=== PATIENT | male | born 1950 | race Hispanic/Latino ===

== ENCOUNTER 2017-11-29 22:11 | Inpatient (IN) | payer MEDICARE ==
[~2017-11-29] VITALS: Ht 165.1 cm; Wt 95.1 kg
[~2017-11-29 22:11] MED LIST: AMLO10TA6 PO; ASPI-555 PO; BRIM15OS OD; CILO100T PO; CLOP75TA32 PO; CYCL30DR OU; DORZ10DR10 OD; FAMO20TA8 PO; FENO145T37 PO; FERR325T22 PO; FISH1CAP27 PO; FOLI1TAB61 PO; INSLAN SQ; KETO1DRO OD; LEVO50TA11 PO; LOSA50TA25 PO; METO-409 PO; ROSU10TA27 PO; SILV400C TP; XALA2.5OS OD
[2017-11-29 22:44] LABS: BASOPHILS % (AUTO) 1.2 % (0.0-5.0); EOSINOPHILS % (AUTO) 3.2 % (0.0-8.0); HEMATOCRIT 25.8 % (42-54); LYMPHOCYTES % (AUTO) 14.8 % (21.0-51.0); MEAN CORPUSCULAR HEMOGLOBIN 32.1 pg (27.0-33.0); MEAN CORPUSCULAR HGB CONC 34.7 g/dL (32.0-36.0); MEAN CORPUSCULAR VOLUME 92.5 fL (79-99); MONOCYTES % (AUTO) 6.2 % (3.0-13.0); NEUTROPHILS % (AUTO) 74.6 % (40.0-77.0); PLATELET COUNT (AUTO) 195 K/uL (130-400); RED BLOOD CELL COUNT(AUTO) 2.79 MIL/uL (4.50-6.20); RED CELL DISTRIBUTION WIDTH 14.4 % (11.0-15.5); WHITE BLOOD COUNT (AUTO) 8.1 K/uL (4.8-10.8)
[2017-11-29 22:49] LABS: APPEARANCE,URINE Clear (CLEAR); BILIRUBIN,URINE Negative (NEGATIVE); COLOR,URINE Yellow (YELLOW); GLUCOSE, URINE (UA) Negative (NEGATIVE); KETONES,URINE Negative (NEGATIVE); LEUKOCYTE ESTERASE ,URINE Negative (NEGATIVE); NITRATE,URINE Negative (NEGATIVE); OCCULT BLOOD,URINE Negative (NEGATIVE); PH,URINE 5.5 (5.0-8.0); PROTEIN,URINE Trace (NEGATIVE); UROBILINOGEN,URINE 0.2 mg/dL (0.2-1.0)
[2017-11-29 22:58] LABS: AMPHET/METH SCREEN,URINE NEGATIVE (NEGATIVE); BARBITURATE SCREEN, URINE NEGATIVE (NEGATIVE); BENZODIAZEPINES SCREEN,URINE NEGATIVE (NEGATIVE); CANNABINOID SCREEN,URINE NEGATIVE (NEGATIVE); COCAINE SCREEN,URINE NEGATIVE (NEGATIVE); OPIATE SCREEN,URINE NEGATIVE (NEGATIVE); PHENCYCLIDINE SCREEN,URINE NEGATIVE (NEGATIVE)
[2017-11-29 22:58] LABS: CREATININE 2.3 mg/dL (0.5-1.5); POTASSIUM 5.6 mmol/L (3.5-5.1)
[2017-11-29 23:03] LABS: ALBUMIN 3.2 g/dL (3.5-5.0); BILIRUBIN,TOTAL 0.2 mg/dL (0.2-1.0); TOTAL PROTEIN, SERUM 6.6 g/dL (6.0-8.3)
[2017-11-29] MEDS ORDERED: FUROSEMIDE 10 MG/ML 4ML VIAL ONE (23:27)
[2017-11-29] MEDS ORDERED: NITROGLYCERIN 1GM/1 INCH PACKET TD ONE (23:28)
[2017-11-29] MEDS ORDERED: IPRATROPIUM/ALBUTEROL SULFATE 3 ML SOLUTION IH ONE (23:35)
[2017-11-30] MEDS ORDERED: ASPIRIN 325 MG TABLET ONE (01:03)
[2017-11-30] MEDS ORDERED: ENOXAPARIN SODIUM 100 MG/1 ML SQ ONE (02:01)
[2017-11-30] MEDS ORDERED: METOPROLOL TARTRATE 25 MG TAB ONE (02:01)
[2017-11-30 03:17] LABS: INR 0.98 (0.85-1.15); PARTIAL THROMBOPLASTIN TIME 27.1 SEC (26.3-35.5); PROTHROMBIN TIME 10.3 SEC (9.6-11.6)
[2017-11-30 08:00] VITALS: BP 148/62
[2017-11-30] MEDS ORDERED: SODIUM CHLORIDE 0.9% 10 ML VIAL IVP PRN (08:00)
[2017-11-30] MEDS ORDERED: FUROSEMIDE 10 MG/ML 4ML VIAL IVP SCH (08:00)
[2017-11-30] MEDS ORDERED: NITROGLYCERIN 50 MG/D5% WATER 250 BOT IV PRN (08:15)
[2017-11-30] MEDS ORDERED: BUPR75TA8 PO (08:28)
[2017-11-30] MEDS ORDERED: CHOL100018 PO (08:28)
[2017-11-30] MEDS ORDERED: LISI-617 PO (08:28)
[2017-11-30] MEDS ORDERED: BRIM5DRO OP (08:28)
[2017-11-30] MEDS ORDERED: CALC667C10 PO (08:28)
[2017-11-30] MEDS ORDERED: FURO40TA5 PO (08:28)
[2017-11-30] MEDS ORDERED: ATOR40TA69 PO (08:28)
[2017-11-30] MEDS ORDERED: LEVO75TA10 PO (08:28)
[2017-11-30] MEDS ORDERED: FOLI1TAB85 PO (08:28)
[2017-11-30] MEDS ORDERED: SITA100T12 PO (08:28)
[2017-11-30] MEDS ORDERED: PRAS10TA9 PO (08:28)
[2017-11-30] MEDS ORDERED: TAMS0.4C32 PO (08:28)
[2017-11-30 08:31] LABS: HEMATOCRIT 24.5 % (42-54); MEAN CORPUSCULAR HEMOGLOBIN 30.7 pg (27.0-33.0); MEAN CORPUSCULAR HGB CONC 33.5 g/dL (32.0-36.0); MEAN CORPUSCULAR VOLUME 91.8 fL (79-99); PLATELET COUNT (AUTO) 156 K/uL (130-400); RED BLOOD CELL COUNT(AUTO) 2.67 MIL/uL (4.50-6.20); RED CELL DISTRIBUTION WIDTH 14.4 % (11.0-15.5); WHITE BLOOD COUNT (AUTO) 7.5 K/uL (4.8-10.8)
[2017-11-30] MEDS: METOPROLOL TARTRATE 25 MG TAB PO SCH ×3 (08:31→21:13)
[2017-11-30] MEDS: ASPIRIN 325 MG TABLET PO SCH (08:31)
[2017-11-30] MEDS: ENOXAPARIN SODIUM 100 MG/1 ML SQ SCH (08:32)
[2017-11-30 09:01] LABS: ALBUMIN 3.1 g/dL (3.5-5.0); BILIRUBIN,TOTAL 0.3 mg/dL (0.2-1.0); CREATINE KINASE MB 91.2 ng/mL (0.5-3.6); CREATININE 2.2 mg/dL (0.5-1.5); POTASSIUM 4.8 mmol/L (3.5-5.1); TOTAL PROTEIN, SERUM 6.3 g/dL (6.0-8.3)
[2017-11-30 09:23] LABS: TROPONIN I 43.4 ng/mL (0.00-0.06)
[2017-11-30] MEDS: IPRATROPIUM/ALBUTEROL SULFATE 3 ML SOLUTION IH SCH ×4 (10:02→21:14)
[2017-11-30] MEDS: INSULIN HUMULIN R 100 UNIT/ML 3ML SQ SCH ×3 (11:30→21:21)
[2017-11-30 11:31] VITALS: BP 139/60
[2017-11-30 14:09] LABS: CREATINE KINASE MB 73.5 ng/mL (0.5-3.6)
[2017-11-30 14:11] LABS: TROPONIN I 33.02 ng/mL (0.00-0.06)
[2017-11-30 16:19] VITALS: BP 130/62
[2017-11-30 19:20] VITALS: BP 165/74
[2017-11-30] MEDS: ATORVASTATIN CALCIUM 40 MG TABLET PO SCH (21:13)
[2017-11-30] MEDS: TAMSULOSIN HCL 0.4 MG CAP.ER.24H PO SCH (21:13)
[2017-11-30 23:31] VITALS: BP 160/75
[2017-12-01] VITALS (7 sets, daily range): BP systolic 130–189; BP diastolic 57–79
[2017-12-01] MEDS: IPRATROPIUM/ALBUTEROL SULFATE 3 ML SOLUTION IH SCH ×4 (02:19→18:10)
[2017-12-01] MEDS: METOPROLOL TARTRATE 25 MG TAB PO SCH ×4 (02:59→21:21)
[2017-12-01] MEDS: LEVOTHYROXINE 75 MCG TABLET PO SCH (06:52)
[2017-12-01] MEDS: INSULIN HUMULIN R 100 UNIT/ML 3ML SQ SCH ×4 (06:53→21:22)
[2017-12-01 10:46] LABS: HEMATOCRIT 26.4 % (42-54); MEAN CORPUSCULAR HEMOGLOBIN 31.5 pg (27.0-33.0); MEAN CORPUSCULAR HGB CONC 33.9 g/dL (32.0-36.0); PLATELET COUNT (AUTO) 218 K/uL (130-400); RED BLOOD CELL COUNT(AUTO) 2.84 MIL/uL (4.50-6.20); RED CELL DISTRIBUTION WIDTH 14.3 % (11.0-15.5); WHITE BLOOD COUNT (AUTO) 8.5 K/uL (4.8-10.8)
[2017-12-01] MEDS: LINAGLIPTIN 5 MG TABLET PO SCH (10:50)
[2017-12-01] MEDS: FUROSEMIDE 40 MG TABLET PO SCH (10:50)
[2017-12-01] MEDS: PRASUGREL HCL 10 MG TABLET PO SCH (10:50)
[2017-12-01] MEDS: ASPIRIN 325 MG TABLET PO SCH (10:50)
[2017-12-01] MEDS: ENOXAPARIN SODIUM 100 MG/1 ML SQ SCH (10:51)
[2017-12-01] MEDS: INSULIN GLARGINE 100 UNITS/ML 10 ML VIAL SQ SCH (10:59)
[2017-12-01 11:18] LABS: CREATINE KINASE MB 16.1 ng/mL (0.5-3.6); CREATININE 2.5 mg/dL (0.5-1.5); POTASSIUM 4.5 mmol/L (3.5-5.1)
[2017-12-01 11:25] LABS: TROPONIN I 12.33 ng/mL (0.00-0.06)
[2017-12-01] MEDS ORDERED: SODIUM CHLORIDE 0.9% 1000ML 1,000 ML IV SCH (17:00)
[2017-12-01] MEDS ORDERED: IPRATROPIUM/ALBUTEROL SULFATE 3 ML SOLUTION IH PRN (18:30)
[2017-12-01] MEDS: TAMSULOSIN HCL 0.4 MG CAP.ER.24H PO SCH (21:21)
[2017-12-01] MEDS: ATORVASTATIN CALCIUM 40 MG TABLET PO SCH (21:22)
[2017-12-01] MEDS: ACETYLCYSTEINE 20% 200MG/ML 4ML VIAL PO SCH (21:23)
[2017-12-02] MEDS: METOPROLOL TARTRATE 25 MG TAB PO SCH ×4 (03:00→20:36)
[2017-12-02 03:32] VITALS: BP 95/41
[2017-12-02 04:06] LABS: BASOPHILS % (AUTO) 1.4 % (0.0-5.0); EOSINOPHILS % (AUTO) 4.4 % (0.0-8.0); HEMATOCRIT 22.9 % (42-54); LYMPHOCYTES % (AUTO) 27.9 % (21.0-51.0); MEAN CORPUSCULAR HGB CONC 33.7 g/dL (32.0-36.0); MONOCYTES % (AUTO) 8.6 % (3.0-13.0); NEUTROPHILS % (AUTO) 57.7 % (40.0-77.0); NUCLEATED RED BLOOD CELLS 0.1 % (0.0-0.19); PLATELET COUNT (AUTO) 162 K/uL (130-400); RED BLOOD CELL COUNT(AUTO) 2.48 MIL/uL (4.50-6.20); RED CELL DISTRIBUTION WIDTH 14.1 % (11.0-15.5); WHITE BLOOD COUNT (AUTO) 5.6 K/uL (4.8-10.8)
[2017-12-02 04:22] LABS: % IRON SATURATION 26.4 % (30-44)
[2017-12-02 04:33] LABS: ALBUMIN 2.9 g/dL (3.5-5.0); BILIRUBIN,TOTAL 0.3 mg/dL (0.2-1.0); CREATININE 2.2 mg/dL (0.5-1.5); MAGNESIUM 2.2 mg/dL (1.80-2.40); PHOSPHORUS 4.2 mg/dL (2.5-4.9); POTASSIUM 4.3 mmol/L (3.5-5.1); TOTAL PROTEIN, SERUM 6.3 g/dL (6.0-8.3); URIC ACID 8.6 mg/dL (2.6-7.2)
[2017-12-02] MEDS: LEVOTHYROXINE 75 MCG TABLET PO SCH (05:42)
[2017-12-02] MEDS: INSULIN HUMULIN R 100 UNIT/ML 3ML SQ SCH ×4 (05:58→20:42)
[2017-12-02 07:28] VITALS: BP 147/65
[2017-12-02] MEDS: ASPIRIN 325 MG TABLET PO SCH (10:25)
[2017-12-02] MEDS: FOLIC ACID/VITAMIN B COMP W-C 1 MG CAPSULE PO SCH (10:25)
[2017-12-02] MEDS: PRASUGREL HCL 10 MG TABLET PO SCH (10:25)
[2017-12-02] MEDS: FUROSEMIDE 40 MG TABLET PO SCH (10:25)
[2017-12-02] MEDS: LINAGLIPTIN 5 MG TABLET PO SCH (10:25)
[2017-12-02] MEDS: ACETYLCYSTEINE 20% 200MG/ML 4ML VIAL PO SCH ×2 (10:26→21:00)
[2017-12-02] MEDS: ENOXAPARIN SODIUM 100 MG/1 ML SQ SCH (10:26)
[2017-12-02] MEDS: INSULIN GLARGINE 100 UNITS/ML 10 ML VIAL SQ SCH (10:28)
[2017-12-02 11:34] VITALS: BP 146/73
[2017-12-02] MEDS ORDERED: EPOETIN ALFA 10,000 UNIT/ML VIAL SQ SCH (12:45)
[2017-12-02 16:01] VITALS: BP 142/77
[2017-12-02 19:02] VITALS: BP 105/49
[2017-12-02] MEDS: ATORVASTATIN CALCIUM 40 MG TABLET PO SCH (20:36)
[2017-12-02] MEDS: TAMSULOSIN HCL 0.4 MG CAP.ER.24H PO SCH (20:36)
[2017-12-02 23:54] VITALS: BP 133/66
[2017-12-03] MEDS ORDERED: SODIUM CHLORIDE 0.9% 1000ML 1,000 ML IV PRN (01:45)
[2017-12-03] MEDS: METOPROLOL TARTRATE 25 MG TAB PO SCH ×3 (02:44→17:01)
[2017-12-03 03:49] VITALS: BP 143/62
[2017-12-03 04:07] LABS: BASOPHILS % (AUTO) 1.1 % (0.0-5.0); EOSINOPHILS % (AUTO) 3.4 % (0.0-8.0); HEMATOCRIT 22.8 % (42-54); LYMPHOCYTES % (AUTO) 26.5 % (21.0-51.0); MEAN CORPUSCULAR HEMOGLOBIN 31.8 pg (27.0-33.0); MEAN CORPUSCULAR HGB CONC 34.5 g/dL (32.0-36.0); MEAN CORPUSCULAR VOLUME 92.2 fL (79-99); MONOCYTES % (AUTO) 9.4 % (3.0-13.0); NEUTROPHILS % (AUTO) 59.6 % (40.0-77.0); NUCLEATED RED BLOOD CELLS 0.1 % (0.0-0.19); PLATELET COUNT (AUTO) 179 K/uL (130-400); RED BLOOD CELL COUNT(AUTO) 2.47 MIL/uL (4.50-6.20); RED CELL DISTRIBUTION WIDTH 14.4 % (11.0-15.5); WHITE BLOOD COUNT (AUTO) 6.2 K/uL (4.8-10.8)
[2017-12-03 04:15] LABS: APPEARANCE,URINE Clear (CLEAR); BILIRUBIN,URINE Negative (NEGATIVE); COLOR,URINE Yellow (YELLOW); GLUCOSE, URINE (UA) Negative (NEGATIVE); KETONES,URINE Negative (NEGATIVE); LEUKOCYTE ESTERASE ,URINE Negative (NEGATIVE); NITRATE,URINE Negative (NEGATIVE); OCCULT BLOOD,URINE Negative (NEGATIVE); PROTEIN,URINE Negative (NEGATIVE); UROBILINOGEN,URINE 0.2 mg/dL (0.2-1.0)
[2017-12-03] MEDS: LEVOTHYROXINE 75 MCG TABLET PO SCH (04:15)
[2017-12-03 04:16] LABS: BACTERIA,URINE None Seen /HPF (None Seen); RBC,URINE None Seen /HPF (0-1); SQUAMOUS EPITHELIAL CELL,UR Few /HPF (0-2); WBC,URINE None Seen /HPF (0-1)
[2017-12-03 04:23] LABS: CARBON DIOXIDE 28 mmol/L (21-32); CHLORIDE 105 mmol/L (101-111); CREATININE 2.4 mg/dL (0.5-1.5); GLUCOSE,RANDOM 165 mg/dL (70-105); POTASSIUM 4.3 mmol/L (3.5-5.1); SODIUM SERUM 140 mmol/L (136-145); UREA NITROGEN, BLOOD 66 mg/dL (7-18)
[2017-12-03 04:24] LABS: ALANINE AMINOTRANSFERASE 34 U/L (12-78); ALBUMIN 2.9 g/dL (3.5-5.0); ASPARTATE AMINOTRANSFERASE 34 U/L (10-37); BILIRUBIN,TOTAL 0.2 mg/dL (0.2-1.0); GLOMERULAR FILTR. RATE CALC 29 mL/min (>60); TOTAL PROTEIN, SERUM 6.1 g/dL (6.0-8.3)
[2017-12-03 04:28] LABS: % IRON SATURATION 27.6 % (30-44); FERRITIN 543 ng/mL (30-400); IRON, SERUM 49 mcg/dL (65-175); TOTAL IRON BINDING CAPACITY 177 mcg/dL (250-450)
[2017-12-03] MEDS: INSULIN HUMULIN R 100 UNIT/ML 3ML SQ SCH ×3 (05:55→17:01)
[2017-12-03 07:01] LABS: RETICULOCYTE % (AUTO) 3.54 % (0.42-2.23)
[2017-12-03 07:33] VITALS: BP 120/52
[2017-12-03] MEDS: ENOXAPARIN SODIUM 100 MG/1 ML SQ SCH (09:00)
[2017-12-03] MEDS ORDERED: REGADENOSON 0.4 MG/5 ML PF SYG IVP SCH (09:30)
[2017-12-03 12:25] VITALS: BP 92/48
[2017-12-03] MEDS: ASPIRIN 325 MG TABLET PO SCH (12:28)
[2017-12-03] MEDS: LINAGLIPTIN 5 MG TABLET PO SCH (12:28)
[2017-12-03] MEDS: FOLIC ACID/VITAMIN B COMP W-C 1 MG CAPSULE PO SCH (12:28)
[2017-12-03] MEDS: PRASUGREL HCL 10 MG TABLET PO SCH (12:28)
[2017-12-03] MEDS: INSULIN GLARGINE 100 UNITS/ML 10 ML VIAL SQ SCH (12:33)
[2017-12-03 16:27] VITALS: BP 122/65
[2017-12-03] MEDS: FUROSEMIDE 40 MG TABLET PO SCH (17:01)
[2017-12-03 18:30] VITALS: BP 118/46
== END 2017-12-03 19:19 | disposition home or self-care (01) | DRG 280 ==
LOC: EDH 22:11 → OBSVTOIN 11-30 01:08 → EDHIP 11-30 01:08 → 2BH 11-30 07:43
PROVIDERS: ADMIT Family Medicine; ATTEND Family Medicine
DX: I21.4 Non-ST elevation (NSTEMI) myocardial infarction (principal); I50.21 Acute systolic (congestive) heart failure; I13.0 Hypertensive heart and chronic kidney disease with heart failure and stage 1 through stage 4 chronic kidney disease, or unspecified chronic kidney disease; N17.9 Acute kidney failure, unspecified; I25.110 Atherosclerotic heart disease of native coronary artery with unstable angina pectoris; E78.5 Hyperlipidemia, unspecified; E11.21 Type 2 diabetes mellitus with diabetic nephropathy; E11.22 Type 2 diabetes mellitus with diabetic chronic kidney disease; E11.51 Type 2 diabetes mellitus with diabetic peripheral angiopathy without gangrene; D64.9 Anemia, unspecified; H40.9 Unspecified glaucoma; I25.5 Ischemic cardiomyopathy; J44.9 Chronic obstructive pulmonary disease, unspecified; N18.9 Chronic kidney disease, unspecified; H54.62 Unqualified visual loss, left eye, normal vision right eye; I25.2 Old myocardial infarction; Z87.891 Personal history of nicotine dependence; Z99.2 Dependence on renal dialysis; Z79.4 Long term (current) use of insulin
CPT/HCPCS: 36415; 71045; 78452; 80048; 80053; 80305; 81001; 81003; 82550; 82553; 82607; 82728; 82746; 82948; 83540; 83550; 83735; 83874; 83880; 84100; 84484; 84550; 85025; 85027; 85610; 85730; 93005; 93017; 93306; 94640; 94664; 96374; 97039; A9500; J0885; J1650; J1815; J1940; J2785; J7608

== ENCOUNTER → 2018-09-28 | Outpatient (CLI) | payer MEDICARE ==
[~2018-09-28] MED LIST changes: +AEC81 PO; -AMLO10TA6 PO; -ASPI-555 PO; +ATOR40TA69 PO; -BRIM15OS OD; +BRIM5DRO OP; +BUPR75TA8 PO; +CALC667C10 PO; +CHOL100018 PO; -CILO100T PO; -CLOP75TA32 PO; -CYCL30DR OU; -DORZ10DR10 OD; -FAMO20TA8 PO; -FENO145T37 PO; -FISH1CAP27 PO; -FOLI1TAB61 PO; +FOLI1TAB85 PO; +FURO40TA5 PO; -KETO1DRO OD; -LEVO50TA11 PO; +LEVO75TA10 PO; -LOSA50TA25 PO; -METO-409 PO; +METO25TA6 PO; +NITR0.4T50 SL; +PRAS10TA9 PO; -ROSU10TA27 PO; -SILV400C TP; +SITA100T12 PO; +TAMS0.4C32 PO
== END | disposition home or self-care (01) ==
LOC: OIH 11:57
PROVIDERS: ATTEND Family Medicine
DX: J90 Pleural effusion, not elsewhere classified (principal); J98.11 Atelectasis
CPT/HCPCS: 71046

== ENCOUNTER 2018-10-21 07:25 | Day surgery (SDC) | payer MEDICARE ==
--- NOTE | 2018-08-31 13:06 | NUR ---
NURSING REGARDING PT BLOOD THINNER PRASUGREL THAT WAS TAKEN THIS AM AND STATES IS BLEEDING EASILY, PER RHETT RAHMAN PT WILL NOTIFIED THAT CASE WILL BE POSTPONED FOR TOMORROW Addendum: 08/31/18 at 1309 by ALEXUS ASHER RN Amended: Links added.
[~2018-10-21] VITALS: Ht 165.1 cm; Wt 93.4 kg
[~2018-10-21 07:25] MED LIST changes: -BUPR75TA8 PO; -CALC667C10 PO; -XALA2.5OS OD
[2018-10-21 09:20] VITALS: BP 175/81
[2018-10-21] MEDS ORDERED: FURO40TA5 PO (09:56)
[2018-10-21] MEDS ORDERED: BRIM5DRO OP (09:59)
[2018-10-21] MEDS ORDERED: [UNRECOGNIZED DRUG - CODE] IJ (10:16)
[2018-10-21] MEDS ORDERED: FLUT1AER IH (10:16)
[2018-10-21] MEDS ORDERED: CALC667C10 PO (10:16)
[2018-10-21] MEDS ORDERED: PANT40TA25 PO (10:16)
[2018-10-21] MEDS ORDERED: CHOL100018 PO (10:29)
[2018-10-21] MEDS ORDERED: SODIUM CHLORIDE 0.9% 1000ML 1,000 ML IV ONE (11:13)
[2018-10-21 11:33] VITALS: BP 137/41
[2018-10-21 11:40] VITALS: BP 144/50
[2018-10-21 11:45] VITALS: BP 151/56
[2018-10-21] MEDS ORDERED: PROPOFOL 10 MG/ML 20ML VIAL IV ONE (11:48)
[2018-10-21 12:00] VITALS: BP 164/53
[2018-10-21 12:05] VITALS: BP 152/53
== END 2018-10-21 12:45 | disposition home or self-care (01) ==
LOC: ENDO 07:25 → DAH 07:25 → ENDO 12:45
PROVIDERS: ATTEND Internal Medicine Gastroenterology
DX: K59.00 Constipation, unspecified (principal); D50.9 Iron deficiency anemia, unspecified; J44.9 Chronic obstructive pulmonary disease, unspecified; I25.2 Old myocardial infarction; I11.0 Hypertensive heart disease with heart failure; I50.9 Heart failure, unspecified; E78.5 Hyperlipidemia, unspecified; H54.7 Unspecified visual loss; E11.9 Type 2 diabetes mellitus without complications; K21.9 Gastro-esophageal reflux disease without esophagitis; K29.70 Gastritis, unspecified, without bleeding; I25.10 Atherosclerotic heart disease of native coronary artery without angina pectoris; K31.84 Gastroparesis; Z86.73 Personal history of transient ischemic attack (TIA), and cerebral infarction without residual deficits; Z79.82 Long term (current) use of aspirin; Z79.899 Other long term (current) drug therapy; Z95.1 Presence of aortocoronary bypass graft
CPT/HCPCS: 45378; 82948; J2704; J7030

== ENCOUNTER 2018-10-22 05:33 | Day surgery (SDC) | payer MEDICARE ==
[~2018-10-22] VITALS: Ht 162.6 cm; Wt 94.8 kg
[~2018-10-22 05:33] MED LIST changes: -AEC81 PO; -BRIM5DRO OP; +CALC667C10 PO; +FLUT1AER IH; +PANT40TA25 PO; -PRAS10TA9 PO; +[UNRECOGNIZED DRUG - CODE] IJ
[2018-10-22] MEDS ORDERED: SODIUM CHLORIDE 0.9% 1000ML 1,000 ML IV ONE (05:45)
[2018-10-22 06:00] VITALS: BP 163/55
[2018-10-22] MEDS ORDERED: GLYCOPYRROLATE 0.2 MG/ML 5 ML VIAL ONE (06:37)
[2018-10-22] MEDS ORDERED: PROPOFOL 10 MG/ML 20ML VIAL IV ONE ×2 (06:37)
[2018-10-22] MEDS ORDERED: LIDOCAINE HCL-MPF 2% 5ML VIAL ONE (06:38)
[2018-10-22 07:01] VITALS: BP 114/40
[2018-10-22 07:06] VITALS: BP 127/49
[2018-10-22 07:11] VITALS: BP 138/53
[2018-10-22 07:16] VITALS: BP 131/56
[2018-10-22 07:21] VITALS: BP 135/58
--- NOTE | 2018-10-22 07:45 | NUR ---
GLUCOSE INFORMED Viky MONTILLA PERSONAL CARE HOME ADMINISTRATOR OF PTS GLUCOSE 79. PT ATE CRACKERS AND 2 APPLE JUICES. STATES PT CAN BE DISCHARGED HOME AND NEEDS TO EAT BREAKFAST AFTER DISCHARGE. BOTH PT AND PTS GRANDSON VERBALIZED UNDERSTANDING. PT DISCHARGED.
== END 2018-10-22 07:55 | disposition home or self-care (01) ==
LOC: ENDO 05:33 → DAH 05:33 → ENDO 07:55
PROVIDERS: ATTEND Internal Medicine
DX: K63.5 Polyp of colon (principal); K57.30 Diverticulosis of large intestine without perforation or abscess without bleeding; K21.9 Gastro-esophageal reflux disease without esophagitis; E11.9 Type 2 diabetes mellitus without complications; I25.10 Atherosclerotic heart disease of native coronary artery without angina pectoris; J44.9 Chronic obstructive pulmonary disease, unspecified; I11.0 Hypertensive heart disease with heart failure; I50.9 Heart failure, unspecified; H40.9 Unspecified glaucoma; Z79.4 Long term (current) use of insulin; Z79.899 Other long term (current) drug therapy; Z83.3 Family history of diabetes mellitus; Z82.49 Family history of ischemic heart disease and other diseases of the circulatory system
CPT/HCPCS: 45380; 45385; 82948 ×3; 88305; A4606; J2704 ×2; J3490 ×2; J7030

== ENCOUNTER → 2018-11-11 | Outpatient (CLI) | payer MEDICARE | END | disposition home or self-care (01) | LOC: OIH 10:54 | PROVIDERS: ATTEND Family Medicine | DX: I51.7 Cardiomegaly (principal); I70.0 Atherosclerosis of aorta; I50.9 Heart failure, unspecified; J40 Bronchitis, not specified as acute or chronic | CPT/HCPCS: 71046 ==

== ENCOUNTER 2019-02-22 14:12 | Emergency (ER) | payer MEDICARE ==
[2019-02-22] MEDS ORDERED: L.E.T. GEL 4%/0.5%/0.18% 3ML 3 ML/SYR SYG TP ONE (14:28)
[2019-02-22] MEDS ORDERED: TETANUS/DIPHTHERIA TOXOID [ADULT] 0.5 ML VIAL IM ONE (14:29)
[2019-02-22 14:45] LABS: BASOPHILS % (AUTO) 1.3 % (0.0-5.0); EOSINOPHILS % (AUTO) 4.7 % (0.0-8.0); HEMATOCRIT 32.9 % (42-54); LYMPHOCYTES % (AUTO) 19.5 % (21.0-51.0); MEAN CORPUSCULAR HEMOGLOBIN 26.7 pg (27.0-33.0); MEAN CORPUSCULAR HGB CONC 32.3 g/dL (32.0-36.0); MEAN CORPUSCULAR VOLUME 82.6 fL (79-99); MONOCYTES % (AUTO) 8.9 % (3.0-13.0); NEUTROPHILS % (AUTO) 65.6 % (40.0-77.0); PLATELET COUNT (AUTO) 175 K/uL (130-400); RED BLOOD CELL COUNT(AUTO) 3.98 MIL/uL (4.50-6.20); RED CELL DISTRIBUTION WIDTH 19.5 % (11.0-15.5); WHITE BLOOD COUNT (AUTO) 5.8 K/uL (4.8-10.8)
[2019-02-22 15:00] LABS: INR 1.01 (0.85-1.15); PARTIAL THROMBOPLASTIN TIME 29.4 SEC (26.3-35.5); PROTHROMBIN TIME 10.6 SEC (9.6-11.6)
== END 2019-02-22 17:17 | disposition home or self-care (01) ==
LOC: EDH 14:12
DX: S01.01XA Laceration without foreign body of scalp, initial encounter (principal); S60.811A Abrasion of right wrist, initial encounter; I25.10 Atherosclerotic heart disease of native coronary artery without angina pectoris; J44.9 Chronic obstructive pulmonary disease, unspecified; E11.9 Type 2 diabetes mellitus without complications; E78.5 Hyperlipidemia, unspecified; I10 Essential (primary) hypertension; Z87.891 Personal history of nicotine dependence; W20.8XXA Other cause of strike by thrown, projected or falling object, initial encounter; Y93.89 Activity, other specified; Y92.89 Other specified places as the place of occurrence of the external cause; Y99.8 Other external cause status
CPT/HCPCS: 12002; 36415; 70450; 82550; 84484; 85025; 85610; 85730; 90471; 90714; 93005

== ENCOUNTER → 2019-12-16 | Outpatient (CLI) | payer MEDICARE ==
[~2019-12-16] MED LIST changes: +ASPI-556 PO; -ATOR40TA69 PO; +BUPR75TA8 PO; -FLUT1AER IH; -FURO40TA5 PO; -INSLAN SQ; -PANT40TA25 PO; +PANT40TA55 PO; -SITA100T12 PO; +SITA50TA PO; -[UNRECOGNIZED DRUG - CODE] IJ
== END | disposition home or self-care (01) ==
LOC: RAH 09:47
PROVIDERS: ATTEND Family Medicine
DX: R60.9 Edema, unspecified (principal)
CPT/HCPCS: 93971

== ENCOUNTER 2021-03-19 18:37 | Inpatient (IN) | payer MEDICARE ==
[~2021-03-19] VITALS: Ht 165.1 cm; Wt 86.9 kg
[2021-03-19 20:27] LABS: BASOPHILS % (AUTO) 0.3 % (0.0-5.0); EOSINOPHILS % (AUTO) 3.2 % (0.0-8.0); HEMATOCRIT 39.1 % (42-54); LYMPHOCYTES % (AUTO) 3.6 % (21.0-51.0); MEAN CORPUSCULAR HEMOGLOBIN 27.9 pg (27.0-33.0); MEAN CORPUSCULAR VOLUME 84.6 fL (79-99); MONOCYTES % (AUTO) 8.8 % (3.0-13.0); NEUTROPHILS % (AUTO) 83.7 % (40.0-77.0); PLATELET COUNT (AUTO) 191 K/uL (130-400); RED BLOOD CELL COUNT(AUTO) 4.62 MIL/uL (4.50-6.20); RED CELL DISTRIBUTION WIDTH 16.9 % (11.0-15.5); WHITE BLOOD COUNT (AUTO) 11.3 K/uL (4.8-10.8)
[2021-03-19 20:48] LABS: INR 1.05 (0.85-1.15); PROTHROMBIN TIME 11.4 SEC (9.6-11.6)
[2021-03-19 20:49] LABS: PARTIAL THROMBOPLASTIN TIME 28.8 SEC (26.3-35.5)
[2021-03-19 21:06] LABS: ALBUMIN 3.7 g/dL (3.5-5.0); BILIRUBIN,TOTAL 0.6 mg/dL (0.2-1.0); CREATININE 3.9 mg/dL (0.5-1.5); TOTAL PROTEIN, SERUM 8.9 g/dL (6.0-8.3)
[2021-03-19 21:15] LABS: POTASSIUM 2.8 mmol/L (3.5-5.1)
[2021-03-19] MEDS ORDERED: POTASSIUM BICARB/CIT AC 25 MEQ TABLET.EFF PO ONE (21:30)
[2021-03-19 23:49] LABS: ABG BASE EXCESS 8.6 mmol/L (-2.0-3.0); ABG HCO3 33.1 mmol/L (21.0-28.0); ABG OXYGEN SATURATION 79.4 % (95.0-99.0); ABG PCO2 45 mmHg (35-48)
[2021-03-20] MEDS ORDERED: ACETAMINOPHEN 325 MG TAB PO PRN
[2021-03-20] MEDS ORDERED: HYDRALAZINE 20MG/ML VIAL IV PRN
[2021-03-20] MEDS ORDERED: ACETAMINOPHEN 650 MG SUPPOSITORY RC PRN
[2021-03-20] MEDS ORDERED: LACTATED RINGERS 1000ML 1,000 ML IV SCH
[2021-03-20] MEDS ORDERED: ONDANSETRON 4MG INJ IVP PRN
[2021-03-20] MEDS ORDERED: CLONIDINE HCL 0.1 MG TABLET PO PRN
[2021-03-20] MEDS ORDERED: LACTULOSE 20 GM/30 ML UDCUP PO PRN
[2021-03-20] MEDS ORDERED: SOLU-MEDROL 125MG VIAL IVP ONE
[2021-03-20 00:21] LABS: CREATINE KINASE, TOTAL 33 U/L (21-232); MYOGLOBIN 174 ng/mL (10-92)
[2021-03-20] MEDS ORDERED: KCL 20 MEQ ERTAB PO ONE ×2 (01:15)
[2021-03-20] MEDS ORDERED: SOLU-MEDROL 125MG VIAL ONE (01:15)
[2021-03-20] MEDS ORDERED: AZITHROMYCIN 500MG+NS 250ML 250 ML IV ONE (01:16)
[2021-03-20] MEDS: AZITHROMYCIN 500MG VIAL IVPB SCH (01:22)
[2021-03-20] MEDS: 0.9% NACL 250ML IVPB SCH (01:22)
[2021-03-20] MEDS: CEFTRIAXONE 1G VIAL IVP SCH (01:22)
[2021-03-20] MEDS: IPRATROPIUM/ALBUTEROL SULFATE 3 ML SOLUTION IH SCH ×6 (01:56→21:39)
[2021-03-20 06:43] LABS: BASOPHILS % (AUTO) 0.3 % (0.0-5.0); EOSINOPHILS % (AUTO) 3.7 % (0.0-8.0); HEMATOCRIT 41.6 % (42-54); LYMPHOCYTES % (AUTO) 5.1 % (21.0-51.0); MEAN CORPUSCULAR HGB CONC 31.7 g/dL (32.0-36.0); MEAN CORPUSCULAR VOLUME 88.3 fL (79-99); NEUTROPHILS % (AUTO) 81.4 % (40.0-77.0); PLATELET COUNT (AUTO) 172 K/uL (130-400); RED BLOOD CELL COUNT(AUTO) 4.71 MIL/uL (4.50-6.20); RED CELL DISTRIBUTION WIDTH 17.1 % (11.0-15.5); WHITE BLOOD COUNT (AUTO) 7.6 K/uL (4.8-10.8)
[2021-03-20 06:57] LABS: % IRON SATURATION 6.4 % (30-44)
[2021-03-20 07:06] LABS: CREATININE 4.3 mg/dL (0.5-1.5); POTASSIUM 3.3 mmol/L (3.5-5.1); THYROID STIMULATING HORMONE 0.65 uIU/mL (0.36-3.74)
[2021-03-20 07:21] LABS: B-TYPE NATRIURETIC PEPTIDE 971 pg/mL (0-100)
[2021-03-20 07:25] LABS: APPEARANCE,URINE Clear (CLEAR); BILIRUBIN,URINE Negative (NEGATIVE); COLOR,URINE Yellow (YELLOW); GLUCOSE, URINE (UA) 250 mg/dL (NEGATIVE); KETONES,URINE Negative (NEGATIVE); LEUKOCYTE ESTERASE ,URINE Negative (NEGATIVE); NITRATE,URINE Negative (NEGATIVE); OCCULT BLOOD,URINE Negative (NEGATIVE); PROTEIN,URINE POS 2+ mg/dL (NEGATIVE); UROBILINOGEN,URINE 0.2 mg/dL (0.2-1.0)
[2021-03-20] MEDS: INSULIN HUMULIN R 100 UNIT/ML 3ML SQ SCH ×4 (07:30→21:00)
[2021-03-20 07:31] LABS: AMORPHOUS SEDIMENT,UR Moderate /LPF (None Seen); BACTERIA,URINE Rare /HPF (None Seen); RBC,URINE 0-1 /HPF (0-1); SQUAMOUS EPITHELIAL CELL,UR Rare /HPF (0-2); WBC,URINE 0-1 /HPF (0-1)
[2021-03-20 07:32] LABS: AMPHET/METH SCREEN,URINE NEGATIVE (NEGATIVE); BARBITURATE SCREEN, URINE NEGATIVE (NEGATIVE); BENZODIAZEPINES SCREEN,URINE NEGATIVE (NEGATIVE); CANNABINOID SCREEN,URINE NEGATIVE (NEGATIVE); COCAINE SCREEN,URINE NEGATIVE (NEGATIVE); OPIATE SCREEN,URINE NEGATIVE (NEGATIVE); PHENCYCLIDINE SCREEN,URINE NEGATIVE (NEGATIVE)
[2021-03-20] MEDS ORDERED: PANTOPRAZOLE 40 MG TAB DR PO SCH (09:00)
[2021-03-20] MEDS ORDERED: FOLI1TAB85 PO (09:18)
[2021-03-20] MEDS ORDERED: NETA2.5D OP (09:18)
[2021-03-20] MEDS ORDERED: FURO40TA5 PO (09:18)
[2021-03-20] MEDS ORDERED: FERR-72 PO (09:18)
[2021-03-20] MEDS ORDERED: METO5TAB7 PO (09:18)
[2021-03-20] MEDS ORDERED: ATOR40TA69 PO (09:18)
[2021-03-20] MEDS ORDERED: BIMA2.5D4 OP (09:18)
[2021-03-20] MEDS ORDERED: CARV6.25 PO (09:18)
[2021-03-20] MEDS ORDERED: NITROGLYCERIN 0.4 MG SL TAB SL SCH (09:30)
[2021-03-20] MEDS: POLYETHYLENE GLYCOL 3350 17 GM POWD.PACK PO SCH (10:27)
[2021-03-20] MEDS: ENOXAPARIN SODIUM 30 MG/0.3 ML SQ SCH (10:27)
[2021-03-20] MEDS: PREDNISONE 20 MG TABLET PO SCH (10:27)
[2021-03-20] MEDS: ASPIRIN 81MG CHEW TAB PO SCH (10:27)
[2021-03-20] MEDS: FUROSEMIDE 40MG VIAL IVP SCH (17:00)
[2021-03-20] MEDS ORDERED: COMPOUND IV MISC 1 EACH IVSOLN MISC PRN (17:30)
[2021-03-20] MEDS: IRON SUCROSE COMPLEX 300 MG in 0.9%NACL 50ML 50 ML IV SCH (18:32)
[2021-03-20] MEDS ORDERED: FUROSEMIDE 40 MG TABLET PO SCH (21:00)
[2021-03-20] MEDS: LATANOPROST 2.5 ML DROPS OP SCH (21:00)
[2021-03-20 22:01] LABS: PROTEIN,URINE RANDOM 125.3 mg/dL (0-11.9)
[2021-03-20] MEDS: CARVEDILOL 6.25 MG TABLET PO SCH (22:21)
[2021-03-20] MEDS: TAMSULOSIN HCL 0.4 MG CAP.ER.24H PO SCH (22:21)
[2021-03-20] MEDS: NETARSUDIL OP SCH (22:21)
[2021-03-20] MEDS: FERROUS SULFATE 325 MG TABLET.DR PO SCH (22:21)
[2021-03-20 23:35] VITALS: BP 162/60
[2021-03-21 00:24] VITALS: BP 145/74
[2021-03-21] MEDS ORDERED: AZITHROMYCIN 500MG+NS 250ML 250 ML IV ONE (00:32)
[2021-03-21] MEDS: CEFTRIAXONE 1G VIAL IVP SCH (00:44)
[2021-03-21] MEDS: FUROSEMIDE 40MG VIAL IVP SCH ×4 (00:46→23:38)
[2021-03-21] MEDS: AZITHROMYCIN 500MG VIAL IVPB SCH (00:49)
[2021-03-21] MEDS: 0.9% NACL 250ML IVPB SCH ×2 (00:50→23:27)
[2021-03-21] MEDS ORDERED: INSU100I26 SQ (01:04)
[2021-03-21] MEDS: IPRATROPIUM/ALBUTEROL SULFATE 3 ML SOLUTION IH SCH ×6 (02:43→22:57)
[2021-03-21 04:16] LABS: BASOPHILS % (AUTO) 0.3 % (0.0-5.0); EOSINOPHILS % (AUTO) 2.7 % (0.0-8.0); HEMATOCRIT 34.8 % (42-54); MEAN CORPUSCULAR HEMOGLOBIN 27.3 pg (27.0-33.0); MEAN CORPUSCULAR VOLUME 88.1 fL (79-99); MONOCYTES % (AUTO) 12.1 % (3.0-13.0); NEUTROPHILS % (AUTO) 77.3 % (40.0-77.0); PLATELET COUNT (AUTO) 160 K/uL (130-400); RED BLOOD CELL COUNT(AUTO) 3.95 MIL/uL (4.50-6.20); RED CELL DISTRIBUTION WIDTH 17.3 % (11.0-15.5); WHITE BLOOD COUNT (AUTO) 7.5 K/uL (4.8-10.8)
[2021-03-21 04:28] VITALS: BP 158/60
[2021-03-21 04:40] LABS: ALBUMIN 2.7 g/dL (3.5-5.0); BILIRUBIN,TOTAL 0.3 mg/dL (0.2-1.0); MAGNESIUM 2.6 mg/dL (1.80-2.40); PHOSPHORUS 5.3 mg/dL (2.5-4.9); POTASSIUM 3.2 mmol/L (3.5-5.1); TOTAL PROTEIN, SERUM 7.6 g/dL (6.0-8.3); URIC ACID 12.3 mg/dL (2.6-7.2)
[2021-03-21] MEDS ORDERED: KCL 20 MEQ ERTAB PO ONE ×3 (06:25→10:30)
[2021-03-21] MEDS: INSULIN HUMULIN R 100 UNIT/ML 3ML SQ SCH ×4 (06:39→20:15)
[2021-03-21 07:51] VITALS: BP 92/64
[2021-03-21] MEDS ORDERED: ASPIRIN 81 MG EC TAB PO SCH (09:00)
[2021-03-21] MEDS: **HM** VIT D3 1000 UNITS PO SCH (09:00)
[2021-03-21] MEDS: BUPROPION 75 MG PO SCH (09:00)
[2021-03-21] MEDS: Vitamin B Complex/Vit C/Folic Acid PO SCH (09:45)
[2021-03-21] MEDS: METOLAZONE 2.5 MG TABLET PO SCH (09:45)
[2021-03-21] MEDS: CALCIUM AC 667MG CAP PO SCH (09:46)
[2021-03-21] MEDS: LEVOTHYROXINE 75 MCG TABLET PO SCH (09:46)
[2021-03-21] MEDS: ATORVASTATIN 40 MG TABLET PO SCH (09:46)
[2021-03-21] MEDS: PANTOPRAZOLE 40 MG TAB DR PO SCH (09:46)
[2021-03-21] MEDS: FERROUS SULFATE 325 MG TABLET.DR PO SCH ×2 (09:46→19:44)
[2021-03-21] MEDS: ASPIRIN 81MG CHEW TAB PO SCH (09:46)
[2021-03-21] MEDS: PREDNISONE 20 MG TABLET PO SCH (09:46)
[2021-03-21] MEDS: CARVEDILOL 6.25 MG TABLET PO SCH ×2 (09:47→19:45)
[2021-03-21] MEDS: POLYETHYLENE GLYCOL 3350 17 GM POWD.PACK PO SCH (09:48)
[2021-03-21] MEDS: ENOXAPARIN SODIUM 30 MG/0.3 ML SQ SCH (09:49)
[2021-03-21 11:23] VITALS: BP 163/105
[2021-03-21 16:00] VITALS: BP 161/74
[2021-03-21] MEDS: IRON SUCROSE COMPLEX 300 MG in 0.9%NACL 50ML 50 ML IV SCH (17:15)
[2021-03-21] MEDS: TAMSULOSIN HCL 0.4 MG CAP.ER.24H PO SCH (19:44)
[2021-03-21] MEDS ORDERED: SODIUM CHLORIDE 3% FOR INHALATION 4 ML/AMP VIAL.NEB IH SCH (19:50)
[2021-03-21] MEDS: NETARSUDIL OP SCH (20:06)
[2021-03-21] MEDS: LATANOPROST 2.5 ML DROPS OP SCH (20:06)
[2021-03-21 20:48] VITALS: BP 146/75
[2021-03-21] MEDS: ZOSYN 3.375GM +NS 50ML IV SCH (23:23)
[2021-03-22 00:07] VITALS: BP 153/60
[2021-03-22] MEDS: IPRATROPIUM/ALBUTEROL SULFATE 3 ML SOLUTION IH SCH ×4 (01:45→14:35)
[2021-03-22 03:42] LABS: HEMATOCRIT 36.5 % (42-54); MEAN CORPUSCULAR HEMOGLOBIN 27.7 pg (27.0-33.0); MEAN CORPUSCULAR HGB CONC 31.2 g/dL (32.0-36.0); MEAN CORPUSCULAR VOLUME 88.8 fL (79-99); PLATELET COUNT (AUTO) 164 K/uL (130-400); RED BLOOD CELL COUNT(AUTO) 4.11 MIL/uL (4.50-6.20); RED CELL DISTRIBUTION WIDTH 17.2 % (11.0-15.5); WHITE BLOOD COUNT (AUTO) 8.9 K/uL (4.8-10.8)
[2021-03-22 03:49] VITALS: BP 119/59
[2021-03-22 03:56] LABS: CREATININE 5.1 mg/dL (0.5-1.5); POTASSIUM 3.9 mmol/L (3.5-5.1)
[2021-03-22 04:14] LABS: BAND NEUTROPHILS % (MANUAL) 5 % (0-2); LYMPHOCYTES % (MANUAL) 3 % (22-44); MAN.DIFF COMMENT-IMPRESSION MANUAL DIFFERENTIAL; MONOCYTES % (MANUAL) 7 % (2-9); PLATELET MORPHOLOGY COMMENT ADEQUATE; SEGMENTED NEUTROPHILS % 85 % (40-70)
[2021-03-22] MEDS: INSULIN HUMULIN R 100 UNIT/ML 3ML SQ SCH ×3 (05:46→16:01)
[2021-03-22 08:00] VITALS: BP 161/72
[2021-03-22] MEDS: Vitamin B Complex/Vit C/Folic Acid PO SCH (08:40)
[2021-03-22] MEDS: ASPIRIN 81MG CHEW TAB PO SCH (08:41)
[2021-03-22] MEDS: METOLAZONE 2.5 MG TABLET PO SCH (08:41)
[2021-03-22] MEDS: ATORVASTATIN 40 MG TABLET PO SCH (08:41)
[2021-03-22] MEDS: PREDNISONE 20 MG TABLET PO SCH (08:41)
[2021-03-22] MEDS: CARVEDILOL 6.25 MG TABLET PO SCH (08:42)
[2021-03-22] MEDS: ENOXAPARIN SODIUM 30 MG/0.3 ML SQ SCH (08:42)
[2021-03-22] MEDS: CALCIUM AC 667MG CAP PO SCH (08:42)
[2021-03-22] MEDS: LEVOTHYROXINE 75 MCG TABLET PO SCH (08:42)
[2021-03-22] MEDS: FERROUS SULFATE 325 MG TABLET.DR PO SCH (08:42)
[2021-03-22] MEDS: POLYETHYLENE GLYCOL 3350 17 GM POWD.PACK PO SCH (08:42)
[2021-03-22] MEDS: FUROSEMIDE 40MG VIAL IVP SCH ×2 (08:42→16:00)
[2021-03-22] MEDS: PANTOPRAZOLE 40 MG TAB DR PO SCH (08:42)
[2021-03-22] MEDS: BUPROPION 75 MG PO SCH (08:47)
[2021-03-22] MEDS: **HM** VIT D3 1000 UNITS PO SCH (08:47)
[2021-03-22] MEDS: ZOSYN 3.375GM +NS 50ML IV SCH (12:19)
[2021-03-22 12:32] VITALS: BP 165/65
[2021-03-22] MEDS: IRON SUCROSE COMPLEX 300 MG in 0.9%NACL 50ML 50 ML IV SCH (16:01)
[2021-03-22 16:27] VITALS: BP 166/70
[2021-03-22] MEDS ORDERED: INSULIN GLARGINE 100 UNITS/ML 10 ML VIAL SQ ONE (17:30)
== END 2021-03-22 18:48 | DRG 682 ==
LOC: EDH 18:37 → EDHIP 23:31 → 4DH 03-20 23:33
PROVIDERS: ADMIT Internal Medicine Pulmonary Disease; ATTEND Internal Medicine Pulmonary Disease
PROC: 5A09357 Assistance with Respiratory Ventilation, Less than 24 Consecutive Hours, Continuous Positive Airway Pressure (ICD-10-PCS; principal; 2021-03-20)
PROC: 5A09357 Assistance with Respiratory Ventilation, Less than 24 Consecutive Hours, Continuous Positive Airway Pressure (ICD-10-PCS; 2021-03-21)
PROC: 5A09357 Assistance with Respiratory Ventilation, Less than 24 Consecutive Hours, Continuous Positive Airway Pressure (ICD-10-PCS; 2021-03-22)
PROC: 02HV33Z Insertion of Infusion Device into Superior Vena Cava, Percutaneous Approach (ICD-10-PCS; 2021-03-22)
DX: N17.9 Acute kidney failure, unspecified (principal); J15.6 Pneumonia due to other Gram-negative bacteria; J96.21 Acute and chronic respiratory failure with hypoxia; J44.0 Chronic obstructive pulmonary disease with (acute) lower respiratory infection; I13.0 Hypertensive heart and chronic kidney disease with heart failure and stage 1 through stage 4 chronic kidney disease, or unspecified chronic kidney disease; I50.9 Heart failure, unspecified; E11.22 Type 2 diabetes mellitus with diabetic chronic kidney disease; E11.65 Type 2 diabetes mellitus with hyperglycemia; I25.10 Atherosclerotic heart disease of native coronary artery without angina pectoris; G47.33 Obstructive sleep apnea (adult) (pediatric); N18.9 Chronic kidney disease, unspecified; H54.62 Unqualified visual loss, left eye, normal vision right eye; E61.1 Iron deficiency; E87.6 Hypokalemia; E03.9 Hypothyroidism, unspecified; Z60.2 Problems related to living alone; E66.9 Obesity, unspecified; Z68.31 Body mass index [BMI] 31.0-31.9, adult; Z79.82 Long term (current) use of aspirin; Z79.899 Other long term (current) drug therapy; Z95.1 Presence of aortocoronary bypass graft; Z87.891 Personal history of nicotine dependence; Z83.3 Family history of diabetes mellitus; Z82.49 Family history of ischemic heart disease and other diseases of the circulatory system; Z20.822 Contact with and (suspected) exposure to COVID-19
CPT/HCPCS: 36415; 36600; 70450; 71045; 71250; 78582; 80048; 80053; 80305; 81001; 82550; 82570; 82803; 82947; 82948; 83036; 83540; 83550; 83605; 83735; 83874; 83880; 84100; 84156; 84443; 84484; 84550; 85025; 85378; 85610; 85730; 87040; 87071; 87077; 87088; 87186; 87205; 87635; 87804; 93005; 93306; 93356; 94640; 94660; 94664; 97039; A9540; A9558; C1894; C9803; G0378; J0456; J0696; J1650; J1756; J1815; J1940; J2543; J2930; J7050; J7120

== ENCOUNTER 2021-08-08 20:43 | Inpatient (IN) | payer OTHER, MEDICARE ==
[~2021-08-08] VITALS: Ht 162.6 cm; Wt 92.1 kg
[~2021-08-08 20:43] MED LIST changes: +ATOR40TA69 PO; +BIMA2.5D4 OP; +CARV6.25 PO; +FERR-72 PO; +FURO40TA5 PO; +INSU100I26 SQ; +METO5TAB7 PO; +NETA2.5D OP
[2021-08-08 21:11] LABS: BASOPHILS % (AUTO) 0.8 % (0.0-5.0); HEMATOCRIT 32.3 % (42-54); LYMPHOCYTES % (AUTO) 9.3 % (21.0-51.0); MEAN CORPUSCULAR HEMOGLOBIN 30.6 pg (27.0-33.0); MEAN CORPUSCULAR HGB CONC 33.4 g/dL (32.0-36.0); MEAN CORPUSCULAR VOLUME 91.5 fL (79-99); MONOCYTES % (AUTO) 8.1 % (3.0-13.0); NEUTROPHILS % (AUTO) 78.3 % (40.0-77.0); PLATELET COUNT (AUTO) 224 K/uL (130-400); RED BLOOD CELL COUNT(AUTO) 3.53 MIL/uL (4.50-6.20); WHITE BLOOD COUNT (AUTO) 9.1 K/uL (4.8-10.8)
[2021-08-08 21:50] LABS: ALBUMIN 2.8 g/dL (3.5-5.0); BILIRUBIN,TOTAL 0.5 mg/dL (0.2-1.0); CREATININE 3.3 mg/dL (0.5-1.5); POTASSIUM 3.2 mmol/L (3.5-5.1); TOTAL PROTEIN, SERUM 7.7 g/dL (6.0-8.3)
[2021-08-08] MEDS ORDERED: PANTOPRAZOLE 40 MG/VIAL IVP ONE (22:00)
[2021-08-08] MEDS ORDERED: MORPHINE 2 MG SYG IVP ONE (22:00)
[2021-08-08] MEDS ORDERED: ONDANSETRON 4MG INJ IVP ONE (22:00)
[2021-08-08] MEDS ORDERED: INSULIN HUMULIN R 100 UNIT/ML 3ML SQ ONE (22:00)
[2021-08-08] MEDS ORDERED: 0.9%NACL 1000ML 1,000 ML IV ONE (22:00)
[2021-08-08] MEDS ORDERED: MORPHINE 2 MG SYG ONE (22:01)
[2021-08-08] MEDS ORDERED: ONDANSETRON 4MG INJ ONE (22:01)
[2021-08-08] MEDS: PANTOPRAZOLE 40MG INJ 80 MG in 0.9%NACL 100ML 100 ML IVP SCH (23:25)
[2021-08-09] MEDS ORDERED: FLUT1AER IH (00:57)
[2021-08-09] MEDS ORDERED: CHOL100034 PO (00:57)
[2021-08-09] MEDS ORDERED: CYCL30DR OP (00:57)
[2021-08-09] MEDS ORDERED: DOCU100C33 PO (00:57)
[2021-08-09] MEDS ORDERED: COMBIGAN 0.2% OU (00:57)
[2021-08-09] MEDS ORDERED: ACETAMINOPHEN 650 MG SUPPOSITORY RC PRN (01:00)
[2021-08-09] MEDS ORDERED: ALBUTEROL 0.083% 2.5 MG/3 ML INH IH PRN (01:00)
[2021-08-09] MEDS ORDERED: TEMAZEPAM 15 MG CAPSULE PO PRN (01:00)
[2021-08-09 01:31] LABS: HEMATOCRIT 31.2 % (42-54)
[2021-08-09] MEDS: 0.9%NACL 1000ML 1,000 ML IV SCH ×2 (02:33→23:15)
[2021-08-09 05:08] VITALS: BP 165/35
[2021-08-09 06:51] LABS: HEMATOCRIT 32.9 % (42-54)
[2021-08-09] MEDS ORDERED: CARVEDILOL 6.25 MG TABLET PO SCH (09:00)
[2021-08-09] MEDS ORDERED: SIMVASTATIN 20 MG TABLET PO SCH (09:00)
[2021-08-09] MEDS: CYCLOSPORINE OP SCH (09:00)
[2021-08-09] MEDS ORDERED: ASPIRIN 81MG CHEW TAB PO SCH (09:00)
[2021-08-09 09:03] VITALS: BP 159/32
[2021-08-09] MEDS: FUROSEMIDE 40 MG TABLET PO SCH ×2 (10:02→23:05)
[2021-08-09] MEDS: ATORVASTATIN 40 MG TABLET PO SCH (10:02)
[2021-08-09] MEDS: POLYETHYLENE GLYCOL 3350 17 GM POWD.PACK PO SCH (10:03)
[2021-08-09] MEDS: PANTOPRAZOLE 40MG INJ 80 MG in 0.9%NACL 100ML 100 ML IVP SCH ×2 (10:30→17:10)
[2021-08-09] MEDS ORDERED: COMPOUND IV MISC 1 EACH IVSOLN MISC PRN (12:00)
[2021-08-09 12:34] VITALS: BP 187/24
[2021-08-09 12:47] LABS: HEMATOCRIT 29.3 % (42-54)
[2021-08-09 17:07] VITALS: BP 154/33
[2021-08-09 20:00] VITALS: BP 173/48
[2021-08-09] MEDS ORDERED: DEXTROSE 50%-WATER 50 ML DISP.SYRIN IV PRN (21:30)
[2021-08-09] MEDS ORDERED: GLUCAGON 1MG KIT 1 MG ML IM PRN (21:30)
[2021-08-09] MEDS: TAMSULOSIN HCL 0.4 MG CAP.ER.24H PO SCH (23:05)
[2021-08-09] MEDS: HYDRALAZINE 25MG TABLET PO SCH (23:06)
[2021-08-09] MEDS: CARVEDILOL 3.125 MG TABLET PO SCH (23:11)
[2021-08-10] VITALS (13 sets, daily range): BP systolic 107–154; BP diastolic 39–112
[2021-08-10] MEDS: INSULIN LISPRO 100 UNIT/ML 3ML SQ SCH ×5 (00:28→22:14)
[2021-08-10 02:03] LABS: APPEARANCE,URINE Clear (CLEAR); BILIRUBIN,URINE Negative (NEGATIVE); COLOR,URINE Yellow (YELLOW); GLUCOSE, URINE (UA) >=1000 mg/dL (NEGATIVE); KETONES,URINE Negative (NEGATIVE); LEUKOCYTE ESTERASE ,URINE Negative (NEGATIVE); NITRATE,URINE Negative (NEGATIVE); OCCULT BLOOD,URINE Moderate (NEGATIVE); PROTEIN,URINE Negative (NEGATIVE); UROBILINOGEN,URINE 0.2 mg/dL (0.2-1.0)
[2021-08-10 02:15] LABS: BACTERIA,URINE None Seen /HPF (None Seen); SQUAMOUS EPITHELIAL CELL,UR Few /HPF (0-2); WBC,URINE 0-1 /HPF (0-1)
[2021-08-10 04:16] LABS: BASOPHILS % (AUTO) 0.8 % (0.0-5.0); EOSINOPHILS % (AUTO) 2.1 % (0.0-8.0); HEMATOCRIT 33.5 % (42-54); LYMPHOCYTES % (AUTO) 6.5 % (21.0-51.0); MEAN CORPUSCULAR HEMOGLOBIN 30.6 pg (27.0-33.0); MEAN CORPUSCULAR HGB CONC 33.7 g/dL (32.0-36.0); MEAN CORPUSCULAR VOLUME 90.8 fL (79-99); MONOCYTES % (AUTO) 7.6 % (3.0-13.0); NEUTROPHILS % (AUTO) 82.6 % (40.0-77.0); PLATELET COUNT (AUTO) 218 K/uL (130-400); RED BLOOD CELL COUNT(AUTO) 3.69 MIL/uL (4.50-6.20); RED CELL DISTRIBUTION WIDTH 14.1 % (11.0-15.5); WHITE BLOOD COUNT (AUTO) 9.4 K/uL (4.8-10.8)
[2021-08-10 04:33] LABS: % IRON SATURATION 16.9 % (30-44)
[2021-08-10 04:39] LABS: ALBUMIN 2.8 g/dL (3.5-5.0); BILIRUBIN,TOTAL 0.4 mg/dL (0.2-1.0); MAGNESIUM 2.8 mg/dL (1.80-2.40); PHOSPHORUS 3.4 mg/dL (2.5-4.9); POTASSIUM 3.4 mmol/L (3.5-5.1); THYROID STIMULATING HORMONE 4.88 uIU/mL (0.36-3.74); TOTAL PROTEIN, SERUM 7.7 g/dL (6.0-8.3); URIC ACID 12.5 mg/dL (2.6-7.2)
[2021-08-10] MEDS ORDERED: INSULIN LISPRO 100 UNIT/ML 3ML SQ SCH (07:30)
[2021-08-10] MEDS: INSULIN GLARGINE 100 UNITS/ML 10 ML VIAL SQ SCH ×2 (07:30→22:14)
[2021-08-10] MEDS: ATORVASTATIN 40 MG TABLET PO SCH (09:00)
[2021-08-10] MEDS: CYCLOSPORINE OP SCH (09:00)
[2021-08-10] MEDS: HYDRALAZINE 25MG TABLET PO SCH ×2 (09:00→21:00)
[2021-08-10] MEDS: FUROSEMIDE 40 MG TABLET PO SCH ×2 (09:00→21:50)
[2021-08-10] MEDS: POLYETHYLENE GLYCOL 3350 17 GM POWD.PACK PO SCH (09:00)
[2021-08-10] MEDS: Vitamin B Complex/Vit C/Folic Acid PO SCH (09:00)
[2021-08-10] MEDS: CARVEDILOL 3.125 MG TABLET PO SCH ×2 (09:00→21:00)
[2021-08-10] MEDS: PANTOPRAZOLE 40 MG/VIAL IVP SCH ×2 (09:39→21:49)
[2021-08-10] MEDS ORDERED: FENTANYL CITRATE PF 50 MCG/1 ML 2ML VIAL ONE (12:09)
[2021-08-10] MEDS ORDERED: MIDAZOLAM HCL 1 MG/ML 2ML VIAL ONE (12:09)
[2021-08-10] MEDS ORDERED: BENZOCAINE 20% 57 GM SPRAY ONE ×2 (12:11→12:15)
[2021-08-10] MEDS: 0.9%NACL 1000ML 1,000 ML IV SCH (17:00)
[2021-08-10] MEDS: LACTULOSE 20 GM/30 ML UDCUP PO SCH ×2 (17:49→23:46)
[2021-08-10] MEDS: TAMSULOSIN HCL 0.4 MG CAP.ER.24H PO SCH (21:50)
[2021-08-11] VITALS: BP 119/63
[2021-08-11 04:00] VITALS: BP 123/71
[2021-08-11 04:23] LABS: HEMATOCRIT 34.5 % (42-54); MEAN CORPUSCULAR HEMOGLOBIN 30.3 pg (27.0-33.0); MEAN CORPUSCULAR HGB CONC 32.8 g/dL (32.0-36.0); MEAN CORPUSCULAR VOLUME 92.5 fL (79-99); RED BLOOD CELL COUNT(AUTO) 3.73 MIL/uL (4.50-6.20); RED CELL DISTRIBUTION WIDTH 14.3 % (11.0-15.5); WHITE BLOOD COUNT (AUTO) 13.6 K/uL (4.8-10.8)
[2021-08-11 04:39] LABS: CREATININE 3.2 mg/dL (0.5-1.5); MAGNESIUM 2.6 mg/dL (1.80-2.40); PHOSPHORUS 4.1 mg/dL (2.5-4.9)
[2021-08-11] MEDS: LACTULOSE 20 GM/30 ML UDCUP PO SCH ×4 (05:04→22:56)
[2021-08-11 05:06] LABS: POTASSIUM 2.6 mmol/L (3.5-5.1)
[2021-08-11] MEDS ORDERED: POTASSIUM CHLORIDE 10MEQ SR TAB PO ONE (05:26)
[2021-08-11] MEDS ORDERED: POTASSIUM CHLORIDE 10MEQ/100ML 100 ML IV ONE (05:30)
[2021-08-11] MEDS ORDERED: LIDOCAINE HCL-MPF 1% 2ML VIAL IV PRN (05:30)
[2021-08-11] MEDS ORDERED: POTASSIUM CHLORIDE 10MEQ/100ML 100 ML IV PRN (05:30)
[2021-08-11] MEDS: INSULIN LISPRO 100 UNIT/ML 3ML SQ SCH ×4 (06:03→20:32)
[2021-08-11] MEDS: INSULIN GLARGINE 100 UNITS/ML 10 ML VIAL SQ SCH ×2 (06:04→20:33)
[2021-08-11 08:00] VITALS: BP 133/55
[2021-08-11] MEDS: PANTOPRAZOLE 40 MG/VIAL IVP SCH ×2 (08:50→20:08)
[2021-08-11] MEDS: Vitamin B Complex/Vit C/Folic Acid PO SCH (08:50)
[2021-08-11] MEDS: ATORVASTATIN 40 MG TABLET PO SCH (08:50)
[2021-08-11] MEDS: FUROSEMIDE 40 MG TABLET PO SCH ×2 (08:50→20:09)
[2021-08-11] MEDS: KCL 20 MEQ ERTAB PO PRN ×3 (08:56→12:50)
[2021-08-11] MEDS: CARVEDILOL 3.125 MG TABLET PO SCH ×2 (08:56→20:09)
[2021-08-11] MEDS: POLYETHYLENE GLYCOL 3350 17 GM POWD.PACK PO SCH (08:59)
[2021-08-11] MEDS: CYCLOSPORINE OP SCH (08:59)
[2021-08-11] MEDS: HYDRALAZINE 25MG TABLET PO SCH ×2 (11:24→20:08)
[2021-08-11 12:00] VITALS: BP 137/89
[2021-08-11 16:00] VITALS: BP 110/54
[2021-08-11] MEDS: 0.9%NACL 1000ML 1,000 ML IV SCH (16:41)
[2021-08-11 20:00] VITALS: BP 154/53
[2021-08-11] MEDS: TAMSULOSIN HCL 0.4 MG CAP.ER.24H PO SCH (20:09)
[2021-08-12] VITALS: BP 129/52
[2021-08-12 04:00] VITALS: BP 148/48
[2021-08-12 04:34] LABS: BASOPHILS % (AUTO) 0.6 % (0.0-5.0); EOSINOPHILS % (AUTO) 1.1 % (0.0-8.0); HEMATOCRIT 30.4 % (42-54); LYMPHOCYTES % (AUTO) 7.8 % (21.0-51.0); MEAN CORPUSCULAR HEMOGLOBIN 30.3 pg (27.0-33.0); MEAN CORPUSCULAR HGB CONC 32.2 g/dL (32.0-36.0); MEAN CORPUSCULAR VOLUME 94.1 fL (79-99); MONOCYTES % (AUTO) 9.1 % (3.0-13.0); NEUTROPHILS % (AUTO) 80.8 % (40.0-77.0); PLATELET COUNT (AUTO) 199 K/uL (130-400); RED BLOOD CELL COUNT(AUTO) 3.23 MIL/uL (4.50-6.20); RED CELL DISTRIBUTION WIDTH 14.4 % (11.0-15.5); WHITE BLOOD COUNT (AUTO) 10.6 K/uL (4.8-10.8)
[2021-08-12 05:04] LABS: ALBUMIN 2.4 g/dL (3.5-5.0); BILIRUBIN,TOTAL 0.4 mg/dL (0.2-1.0); CREATININE 3.1 mg/dL (0.5-1.5); MAGNESIUM 2.5 mg/dL (1.80-2.40); PHOSPHORUS 3.4 mg/dL (2.5-4.9); POTASSIUM 3.2 mmol/L (3.5-5.1)
[2021-08-12] MEDS: LACTULOSE 20 GM/30 ML UDCUP PO SCH ×3 (05:30→18:25)
[2021-08-12] MEDS: INSULIN LISPRO 100 UNIT/ML 3ML SQ SCH ×4 (07:03→20:26)
[2021-08-12] MEDS: INSULIN GLARGINE 100 UNITS/ML 10 ML VIAL SQ SCH ×2 (07:03→20:27)
[2021-08-12 08:00] VITALS: BP 180/51
[2021-08-12] MEDS: PANTOPRAZOLE 40 MG/VIAL IVP SCH ×2 (08:18→20:19)
[2021-08-12] MEDS: POLYETHYLENE GLYCOL 3350 17 GM POWD.PACK PO SCH (08:18)
[2021-08-12] MEDS: ATORVASTATIN 40 MG TABLET PO SCH (08:19)
[2021-08-12] MEDS: HYDRALAZINE 25MG TABLET PO SCH ×2 (08:19→20:20)
[2021-08-12] MEDS: FUROSEMIDE 40 MG TABLET PO SCH (08:19)
[2021-08-12] MEDS: CARVEDILOL 3.125 MG TABLET PO SCH ×2 (08:19→20:20)
[2021-08-12] MEDS: Vitamin B Complex/Vit C/Folic Acid PO SCH (08:20)
[2021-08-12] MEDS: KCL 20 MEQ ERTAB PO PRN ×3 (08:22→14:02)
[2021-08-12] MEDS: CYCLOSPORINE OP SCH (09:00)
[2021-08-12 12:00] VITALS: BP 148/38
[2021-08-12] MEDS: 0.9%NACL 1000ML 1,000 ML IV SCH (14:03)
[2021-08-12 16:00] VITALS: BP 146/33
[2021-08-12 20:00] VITALS: BP 109/44
[2021-08-12] MEDS: TAMSULOSIN HCL 0.4 MG CAP.ER.24H PO SCH (20:19)
[2021-08-13] VITALS: BP 130/44
[2021-08-13] MEDS: LACTULOSE 20 GM/30 ML UDCUP PO SCH ×5 (00:10→23:30)
[2021-08-13 04:00] VITALS: BP 174/63
[2021-08-13] MEDS: INSULIN LISPRO 100 UNIT/ML 3ML SQ SCH ×4 (05:25→20:35)
[2021-08-13] MEDS: INSULIN GLARGINE 100 UNITS/ML 10 ML VIAL SQ SCH ×2 (05:26→20:33)
[2021-08-13 05:36] LABS: BASOPHILS % (AUTO) 0.7 % (0.0-5.0); EOSINOPHILS % (AUTO) 2.3 % (0.0-8.0); HEMATOCRIT 32.6 % (42-54); LYMPHOCYTES % (AUTO) 9.9 % (21.0-51.0); MEAN CORPUSCULAR HGB CONC 32.2 g/dL (32.0-36.0); MEAN CORPUSCULAR VOLUME 96.2 fL (79-99); MONOCYTES % (AUTO) 8.5 % (3.0-13.0); NEUTROPHILS % (AUTO) 78.1 % (40.0-77.0); PLATELET COUNT (AUTO) 222 K/uL (130-400); RED BLOOD CELL COUNT(AUTO) 3.39 MIL/uL (4.50-6.20); RED CELL DISTRIBUTION WIDTH 14.6 % (11.0-15.5); WHITE BLOOD COUNT (AUTO) 10.4 K/uL (4.8-10.8)
[2021-08-13 06:04] LABS: B-TYPE NATRIURETIC PEPTIDE 435 pg/mL (0-100)
[2021-08-13 06:07] LABS: PROTHROMBIN TIME 10.9 SEC (9.6-11.6)
[2021-08-13 06:29] LABS: ALBUMIN 2.3 g/dL (3.5-5.0); BILIRUBIN,TOTAL 0.4 mg/dL (0.2-1.0); CREATININE 2.5 mg/dL (0.5-1.5); MAGNESIUM 2.3 mg/dL (1.80-2.40); PHOSPHORUS 3.1 mg/dL (2.5-4.9); POTASSIUM 3.1 mmol/L (3.5-5.1); TOTAL PROTEIN, SERUM 6.8 g/dL (6.0-8.3)
[2021-08-13] MEDS: KCL 20 MEQ ERTAB PO PRN ×3 (06:41→16:38)
[2021-08-13] MEDS: ACETAMINOPHEN 325 MG TAB PO PRN (06:48)
[2021-08-13 07:20] VITALS: BP 134/30
[2021-08-13] MEDS: PANTOPRAZOLE 40 MG/VIAL IVP SCH ×2 (08:22→20:37)
[2021-08-13] MEDS: CYCLOSPORINE OP SCH (09:00)
[2021-08-13] MEDS: POLYETHYLENE GLYCOL 3350 17 GM POWD.PACK PO SCH (09:30)
[2021-08-13] MEDS: CARVEDILOL 3.125 MG TABLET PO SCH ×2 (09:31→20:38)
[2021-08-13] MEDS: Vitamin B Complex/Vit C/Folic Acid PO SCH (09:31)
[2021-08-13] MEDS: ATORVASTATIN 40 MG TABLET PO SCH (09:32)
[2021-08-13] MEDS: HYDRALAZINE 25MG TABLET PO SCH ×2 (09:32→20:38)
[2021-08-13 11:30] VITALS: BP 129/35
[2021-08-13] MEDS: 0.9%NACL 1000ML 1,000 ML IV SCH (11:51)
[2021-08-13 15:25] VITALS: BP 151/55
[2021-08-13 20:14] VITALS: BP 155/47
[2021-08-13] MEDS: TAMSULOSIN HCL 0.4 MG CAP.ER.24H PO SCH (20:38)
[2021-08-14] VITALS (27 sets, daily range): BP systolic 99–190; BP diastolic 33–81
[2021-08-14 04:37] LABS: BASOPHILS % (AUTO) 0.6 % (0.0-5.0); EOSINOPHILS % (AUTO) 2.2 % (0.0-8.0); HEMATOCRIT 32.5 % (42-54); MEAN CORPUSCULAR HEMOGLOBIN 29.9 pg (27.0-33.0); MEAN CORPUSCULAR HGB CONC 31.1 g/dL (32.0-36.0); MEAN CORPUSCULAR VOLUME 96.2 fL (79-99); MONOCYTES % (AUTO) 9.4 % (3.0-13.0); NEUTROPHILS % (AUTO) 77.1 % (40.0-77.0); PLATELET COUNT (AUTO) 207 K/uL (130-400); RED BLOOD CELL COUNT(AUTO) 3.38 MIL/uL (4.50-6.20); RED CELL DISTRIBUTION WIDTH 14.6 % (11.0-15.5); WHITE BLOOD COUNT (AUTO) 8.9 K/uL (4.8-10.8)
[2021-08-14 04:54] LABS: ALBUMIN 2.3 g/dL (3.5-5.0); BILIRUBIN,TOTAL 0.5 mg/dL (0.2-1.0); CREATININE 2.2 mg/dL (0.5-1.5); MAGNESIUM 2.2 mg/dL (1.80-2.40); PHOSPHORUS 3.1 mg/dL (2.5-4.9); POTASSIUM 3.2 mmol/L (3.5-5.1); TOTAL PROTEIN, SERUM 6.9 g/dL (6.0-8.3)
[2021-08-14 05:09] LABS: PROTHROMBIN TIME 10.9 SEC (9.6-11.6)
[2021-08-14] MEDS: LACTULOSE 20 GM/30 ML UDCUP PO SCH ×4 (05:29→22:34)
[2021-08-14] MEDS: INSULIN LISPRO 100 UNIT/ML 3ML SQ SCH ×4 (05:30→20:17)
[2021-08-14] MEDS: INSULIN GLARGINE 100 UNITS/ML 10 ML VIAL SQ SCH ×2 (05:31→20:17)
[2021-08-14] MEDS: POLYETHYLENE GLYCOL 3350 17 GM POWD.PACK PO SCH (08:18)
[2021-08-14] MEDS: Vitamin B Complex/Vit C/Folic Acid PO SCH (08:19)
[2021-08-14] MEDS: PANTOPRAZOLE 40 MG/VIAL IVP SCH ×2 (08:50→20:16)
[2021-08-14] MEDS: ATORVASTATIN 40 MG TABLET PO SCH (09:00)
[2021-08-14] MEDS: CARVEDILOL 3.125 MG TABLET PO SCH ×2 (09:00→20:16)
[2021-08-14] MEDS: CYCLOSPORINE OP SCH (09:00)
[2021-08-14] MEDS: HYDRALAZINE 25MG TABLET PO SCH ×2 (09:00→20:15)
[2021-08-14] MEDS ORDERED: LIDOCAINE PF 100MG/5ML (2%) SYRINGE 5ML ONE (15:14)
[2021-08-14] MEDS ORDERED: DEXAMETHASONE SOD PHOSPHATE 10MG/ML 1ML VIAL ONE (15:14)
[2021-08-14] MEDS ORDERED: SUCCINYLCHOLINE CHLORIDE 20 MG/ML 10 ML VIAL ONE (15:14)
[2021-08-14] MEDS ORDERED: NEOSTIGMINE 5MG/5ML SYR IV ONE (15:15)
[2021-08-14] MEDS ORDERED: PROPOFOL 10 MG/ML 20ML VIAL IV ONE (15:15)
[2021-08-14] MEDS ORDERED: GLYCOPYRROLATE 1 MG/5 ML SYRINGE ONE (15:15)
[2021-08-14] MEDS ORDERED: MIDAZOLAM HCL 1 MG/ML 2ML VIAL ONE (15:15)
[2021-08-14] MEDS ORDERED: ONDANSETRON 4MG INJ ONE (15:15)
[2021-08-14] MEDS ORDERED: ROCURONIUM 10MG/1ML SYR 10 MG/ML ML ONE (15:15)
[2021-08-14] MEDS ORDERED: FENTANYL CITRATE PF 50 MCG/1 ML 2ML VIAL ONE (15:16)
[2021-08-14] MEDS ORDERED: OXYMETAZOLINE HCL SPRAY 15 ML BOTTLE ONE (15:17)
[2021-08-14] MEDS ORDERED: ROPIVACAINE 0.5% 5MG/ML 30ML IJ ONE (15:17)
[2021-08-14] MEDS ORDERED: KETAMINE 50MG/ML SYRINGE 50 MG/ML DISP.SYRIN IV ONE (16:26)
[2021-08-14] MEDS ORDERED: CEFAZOLIN SODIUM 2 GM VIAL IV ONE (17:15)
[2021-08-14] MEDS ORDERED: CEFAZOLIN SODIUM 1 GM VIAL ONE ×2 (17:45→17:46)
[2021-08-14] MEDS ORDERED: EPHEDRINE SULFATE 50 MG/ML AMPULE ONE (19:08)
[2021-08-14] MEDS: TAMSULOSIN HCL 0.4 MG CAP.ER.24H PO SCH (20:15)
[2021-08-14] MEDS: MORPHINE 4 MG SYG IM PRN (22:42)
[2021-08-15] MEDS: CEFAZOLIN SODIUM 1 GM VIAL IVP SCH ×2 (00:11→07:46)
[2021-08-15 01:00] VITALS: BP 165/68
[2021-08-15 03:07] VITALS: BP 164/65
[2021-08-15] MEDS: LACTULOSE 20 GM/30 ML UDCUP PO SCH ×4 (03:43→22:55)
[2021-08-15 04:40] LABS: HEMATOCRIT 31.4 % (42-54); MEAN CORPUSCULAR HEMOGLOBIN 30.4 pg (27.0-33.0); MEAN CORPUSCULAR HGB CONC 31.2 g/dL (32.0-36.0); MEAN CORPUSCULAR VOLUME 97.5 fL (79-99); RED BLOOD CELL COUNT(AUTO) 3.22 MIL/uL (4.50-6.20); RED CELL DISTRIBUTION WIDTH 14.6 % (11.0-15.5)
[2021-08-15 05:11] LABS: ALBUMIN 2.5 g/dL (3.5-5.0); BILIRUBIN,TOTAL 0.4 mg/dL (0.2-1.0); CREATININE 2.1 mg/dL (0.5-1.5); MAGNESIUM 2.2 mg/dL (1.80-2.40); POTASSIUM 3.5 mmol/L (3.5-5.1); TOTAL PROTEIN, SERUM 6.9 g/dL (6.0-8.3)
[2021-08-15] MEDS: INSULIN LISPRO 100 UNIT/ML 3ML SQ SCH ×4 (05:54→21:00)
[2021-08-15] MEDS: INSULIN GLARGINE 100 UNITS/ML 10 ML VIAL SQ SCH ×2 (06:03→21:14)
[2021-08-15] MEDS: MORPHINE 4 MG SYG IM PRN (06:16)
[2021-08-15] MEDS ORDERED: MORPHINE 4 MG SYG IVP PRN (06:30)
[2021-08-15] MEDS: ATORVASTATIN 40 MG TABLET PO SCH (07:44)
[2021-08-15] MEDS: Vitamin B Complex/Vit C/Folic Acid PO SCH (07:44)
[2021-08-15] MEDS: PANTOPRAZOLE 40 MG/VIAL IVP SCH ×2 (07:45→21:11)
[2021-08-15] MEDS: HYDRALAZINE 25MG TABLET PO SCH ×2 (07:45→21:12)
[2021-08-15] MEDS: CARVEDILOL 3.125 MG TABLET PO SCH ×2 (07:45→21:12)
[2021-08-15] MEDS: CYCLOSPORINE OP SCH (07:45)
[2021-08-15] MEDS: POLYETHYLENE GLYCOL 3350 17 GM POWD.PACK PO SCH (07:46)
[2021-08-15] MEDS: HYDROCODONE/ACETAMINOPHEN 5/325 MG TAB PO PRN ×3 (07:46→19:59)
[2021-08-15 08:34] VITALS: BP 172/84
[2021-08-15 11:15] VITALS: BP 161/79
[2021-08-15 15:42] VITALS: BP 160/68
[2021-08-15 20:00] VITALS: BP 172/48
[2021-08-15] MEDS: TAMSULOSIN HCL 0.4 MG CAP.ER.24H PO SCH (21:12)
[2021-08-16] VITALS (8 sets, daily range): BP systolic 131–198; BP diastolic 44–73
[2021-08-16 04:14] LABS: HEMATOCRIT 29.4 % (42-54); MEAN CORPUSCULAR HEMOGLOBIN 29.8 pg (27.0-33.0); MEAN CORPUSCULAR VOLUME 96.4 fL (79-99); PLATELET COUNT (AUTO) 192 K/uL (130-400); RED BLOOD CELL COUNT(AUTO) 3.05 MIL/uL (4.50-6.20); RED CELL DISTRIBUTION WIDTH 14.7 % (11.0-15.5); WHITE BLOOD COUNT (AUTO) 9.7 K/uL (4.8-10.8)
[2021-08-16 04:52] LABS: ALBUMIN 2.3 g/dL (3.5-5.0); BILIRUBIN,TOTAL 0.5 mg/dL (0.2-1.0); CREATININE 2.1 mg/dL (0.5-1.5); MAGNESIUM 2.1 mg/dL (1.80-2.40); POTASSIUM 3.1 mmol/L (3.5-5.1); TOTAL PROTEIN, SERUM 6.8 g/dL (6.0-8.3)
[2021-08-16] MEDS: LACTULOSE 20 GM/30 ML UDCUP PO SCH ×4 (04:56→22:39)
[2021-08-16] MEDS: KCL 20 MEQ ERTAB PO PRN (05:21)
[2021-08-16] MEDS: INSULIN LISPRO 100 UNIT/ML 3ML SQ SCH ×4 (05:32→20:58)
[2021-08-16] MEDS: INSULIN GLARGINE 100 UNITS/ML 10 ML VIAL SQ SCH ×2 (05:46→20:57)
[2021-08-16] MEDS: PANTOPRAZOLE 40 MG/VIAL IVP SCH ×2 (07:29→20:45)
[2021-08-16] MEDS: Vitamin B Complex/Vit C/Folic Acid PO SCH (07:29)
[2021-08-16] MEDS: CYCLOSPORINE OP SCH (07:30)
[2021-08-16] MEDS: CARVEDILOL 3.125 MG TABLET PO SCH ×2 (07:30→20:46)
[2021-08-16] MEDS: ATORVASTATIN 40 MG TABLET PO SCH (07:30)
[2021-08-16] MEDS: POLYETHYLENE GLYCOL 3350 17 GM POWD.PACK PO SCH (07:30)
[2021-08-16] MEDS: HYDRALAZINE 25MG TABLET PO SCH ×2 (07:30→20:45)
[2021-08-16] MEDS ORDERED: KCL 20 MEQ ERTAB PO SCH (14:00)
[2021-08-16] MEDS: HYDROCODONE/ACETAMINOPHEN 5/325 MG TAB PO PRN (14:04)
[2021-08-16] MEDS: TAMSULOSIN HCL 0.4 MG CAP.ER.24H PO SCH (20:46)
[2021-08-17] VITALS: BP 170/43
[2021-08-17 01:23] VITALS: BP 169/55
[2021-08-17 03:51] LABS: HEMATOCRIT 27.1 % (42-54); MEAN CORPUSCULAR HEMOGLOBIN 30.4 pg (27.0-33.0); MEAN CORPUSCULAR HGB CONC 31.4 g/dL (32.0-36.0); MEAN CORPUSCULAR VOLUME 96.8 fL (79-99); RED BLOOD CELL COUNT(AUTO) 2.8 MIL/uL (4.50-6.20); RED CELL DISTRIBUTION WIDTH 14.6 % (11.0-15.5); WHITE BLOOD COUNT (AUTO) 9.2 K/uL (4.8-10.8)
[2021-08-17 04:00] VITALS: BP 151/56
[2021-08-17 04:11] LABS: ALBUMIN 2.1 g/dL (3.5-5.0); BILIRUBIN,TOTAL 0.4 mg/dL (0.2-1.0); CREATININE 2.4 mg/dL (0.5-1.5); MAGNESIUM 2.2 mg/dL (1.80-2.40); POTASSIUM 3.1 mmol/L (3.5-5.1); TOTAL PROTEIN, SERUM 6.7 g/dL (6.0-8.3)
[2021-08-17] MEDS: LACTULOSE 20 GM/30 ML UDCUP PO SCH ×2 (04:59→11:59)
[2021-08-17] MEDS: KCL 20 MEQ ERTAB PO PRN (04:59)
[2021-08-17] MEDS: HYDROCODONE/ACETAMINOPHEN 5/325 MG TAB PO PRN (05:03)
[2021-08-17] MEDS: INSULIN LISPRO 100 UNIT/ML 3ML SQ SCH ×2 (06:09→12:00)
[2021-08-17] MEDS: INSULIN GLARGINE 100 UNITS/ML 10 ML VIAL SQ SCH (06:16)
[2021-08-17 07:05] VITALS: BP 169/47
[2021-08-17] MEDS: CYCLOSPORINE OP SCH (09:00)
[2021-08-17] MEDS ORDERED: KCL 20 MEQ ERTAB PO SCH (09:00)
[2021-08-17] MEDS: HYDRALAZINE 25MG TABLET PO SCH (09:31)
[2021-08-17] MEDS: Vitamin B Complex/Vit C/Folic Acid PO SCH (09:31)
[2021-08-17] MEDS: PANTOPRAZOLE 40 MG/VIAL IVP SCH (09:31)
[2021-08-17] MEDS: ATORVASTATIN 40 MG TABLET PO SCH (09:31)
[2021-08-17] MEDS: POLYETHYLENE GLYCOL 3350 17 GM POWD.PACK PO SCH (09:32)
[2021-08-17] MEDS: CARVEDILOL 3.125 MG TABLET PO SCH (09:32)
[2021-08-17 11:05] VITALS: BP 133/64
[2021-08-17] MEDS: ACETAMINOPHEN 325 MG TAB PO PRN (12:01)
== END 2021-08-17 14:15 | DRG 239 ==
LOC: EDH 20:43 → EDHIP 08-09 00:38 → OBSVTOIN 08-09 00:38 → 4CH 08-09 04:00
PROVIDERS: ADMIT Internal Medicine Critical Care Medicine; ATTEND Internal Medicine Critical Care Medicine
PROC: 0DJ08ZZ Inspection of Upper Intestinal Tract, Via Natural or Artificial Opening Endoscopic (ICD-10-PCS; 2021-08-10)
PROC: 0Y6H0Z2 Detachment at Right Lower Leg, Mid, Open Approach (ICD-10-PCS; principal; 2021-08-16)
DX: E11.52 Type 2 diabetes mellitus with diabetic peripheral angiopathy with gangrene (principal); K29.71 Gastritis, unspecified, with bleeding; I50.22 Chronic systolic (congestive) heart failure; I13.2 Hypertensive heart and chronic kidney disease with heart failure and with stage 5 chronic kidney disease, or end stage renal disease; D62 Acute posthemorrhagic anemia; E87.1 Hypo-osmolality and hyponatremia; N17.9 Acute kidney failure, unspecified; L97.929 Non-pressure chronic ulcer of unspecified part of left lower leg with unspecified severity; E87.0 Hyperosmolality and hypernatremia; I25.5 Ischemic cardiomyopathy; E11.22 Type 2 diabetes mellitus with diabetic chronic kidney disease; E11.621 Type 2 diabetes mellitus with foot ulcer; E78.5 Hyperlipidemia, unspecified; E87.8 Other disorders of electrolyte and fluid balance, not elsewhere classified; K59.00 Constipation, unspecified; L89.610 Pressure ulcer of right heel, unstageable; L89.620 Pressure ulcer of left heel, unstageable; Z20.822 Contact with and (suspected) exposure to COVID-19; E87.6 Hypokalemia; H54.8 Legal blindness, as defined in USA; K80.20 Calculus of gallbladder without cholecystitis without obstruction; E11.65 Type 2 diabetes mellitus with hyperglycemia; Z79.84 Long term (current) use of oral hypoglycemic drugs; I25.10 Atherosclerotic heart disease of native coronary artery without angina pectoris; Z86.73 Personal history of transient ischemic attack (TIA), and cerebral infarction without residual deficits; Z74.01 Bed confinement status; Z95.1 Presence of aortocoronary bypass graft; L89.152 Pressure ulcer of sacral region, stage 2; I25.2 Old myocardial infarction; E83.41 Hypermagnesemia; D72.810 Lymphocytopenia; L97.519 Non-pressure chronic ulcer of other part of right foot with unspecified severity; J44.9 Chronic obstructive pulmonary disease, unspecified; Z79.899 Other long term (current) drug therapy
CPT/HCPCS: 36415; 43235; 71045; 74176; 80048; 80053; 81001; 82270; 82728; 82948; 83540; 83550; 83735; 83880; 84100; 84132; 84145; 84443; 84484; 84550; 85014; 85018; 85025; 85027; 85610; 87635; 93005; 93925; 94640; 97039; 99152; A4606; C9113; G0378; J0330; J0690; J1100; J1815; J2001; J2250; J2270; J2405; J2704; J2710; J2795; J3010; J3490; J7030

== ENCOUNTER 2021-12-05 09:57 | Emergency (ER) | payer OTHER, MEDICARE ==
[~2021-12-05] VITALS: Ht 170.2 cm; Wt 99.8 kg
[~2021-12-05 09:57] MED LIST changes: +ACET-3194 PO; +ACET650S14 RC; +ASCO500T20 PO; -BIMA2.5D4 OP; +BRIM5DRO OP; +CARV3.1262 PO; -CARV6.25 PO; -CHOL100018 PO; +CHOL100034 PO; +COMBIGAN 0.2% OU; +CYCL30DR OP; +DOCU100C33 PO; -FERR325T22 PO; +FLUT1AER IH; +FURO-151 PO; -FURO40TA5 PO; +HYDR-4153 PO; +HYDR28.32 TP; +INSLAN SQ; -INSU100I26 SQ; +INSU100I47 SQ; +LACT10SO9 PO; +LATA7.5D OP; +LINA5TAB PO; -METO25TA6 PO; -METO5TAB7 PO; +MOM30 PO; +POLY17PO4 PO; +PROM25TA7 PO; -SITA50TA PO; +TRAM50TA4 PO
[2021-12-05 10:44] LABS: BASOPHILS % (AUTO) 1.7 % (0.0-5.0); EOSINOPHILS % (AUTO) 6.2 % (0.0-8.0); HEMATOCRIT 21.6 % (42-54); MEAN CORPUSCULAR HEMOGLOBIN 29.5 pg (27.0-33.0); MEAN CORPUSCULAR HGB CONC 28.7 g/dL (32.0-36.0); MEAN CORPUSCULAR VOLUME 102.9 fL (79-99); MONOCYTES % (AUTO) 8.5 % (3.0-13.0); NEUTROPHILS % (AUTO) 69.4 % (40.0-77.0); PLATELET COUNT (AUTO) 136 K/uL (130-400); WHITE BLOOD COUNT (AUTO) 4.2 K/uL (4.8-10.8)
[2021-12-05 10:54] LABS: CREATININE 2.6 mg/dL (0.5-1.5)
[2021-12-05 10:59] LABS: ALBUMIN 2.8 g/dL (3.5-5.0); TOTAL PROTEIN, SERUM 6.5 g/dL (6.0-8.3)
[2021-12-05 15:08] LABS: BASOPHILS % (AUTO) 1.5 % (0.0-5.0); EOSINOPHILS % (AUTO) 6.4 % (0.0-8.0); HEMATOCRIT 24.8 % (42-54); LYMPHOCYTES % (AUTO) 14.3 % (21.0-51.0); MEAN CORPUSCULAR HEMOGLOBIN 29.8 pg (27.0-33.0); MEAN CORPUSCULAR HGB CONC 29.8 g/dL (32.0-36.0); MONOCYTES % (AUTO) 8.9 % (3.0-13.0); NEUTROPHILS % (AUTO) 68.4 % (40.0-77.0); PLATELET COUNT (AUTO) 143 K/uL (130-400); RED BLOOD CELL COUNT(AUTO) 2.48 MIL/uL (4.50-6.20); RED CELL DISTRIBUTION WIDTH 20.3 % (11.0-15.5); WHITE BLOOD COUNT (AUTO) 4.1 K/uL (4.8-10.8)
[2021-12-05 15:20] VITALS: BP 153/47
== END 2021-12-05 16:25 | disposition home or self-care (01) ==
LOC: EDH 09:57
DX: I13.0 Hypertensive heart and chronic kidney disease with heart failure and stage 1 through stage 4 chronic kidney disease, or unspecified chronic kidney disease (principal); E11.22 Type 2 diabetes mellitus with diabetic chronic kidney disease; D63.1 Anemia in chronic kidney disease; I50.9 Heart failure, unspecified; N18.9 Chronic kidney disease, unspecified; F03.90 Unspecified dementia, unspecified severity, without behavioral disturbance, psychotic disturbance, mood disturbance, and anxiety; E11.51 Type 2 diabetes mellitus with diabetic peripheral angiopathy without gangrene; I25.10 Atherosclerotic heart disease of native coronary artery without angina pectoris; Z79.4 Long term (current) use of insulin; Z79.51 Long term (current) use of inhaled steroids; Z79.82 Long term (current) use of aspirin; Z79.899 Other long term (current) drug therapy; Z86.73 Personal history of transient ischemic attack (TIA), and cerebral infarction without residual deficits
CPT/HCPCS: 99285; 36430; 80053; 85025 ×2; 86850; 86900; 86901; 86923; 36415; P9016